=== PATIENT | female | born 1960 | race Hispanic/Latino ===

== ENCOUNTER 2019-09-04 15:46 | Emergency (ER) | payer BC ==
[~2019-09-04] VITALS: Ht 154.9 cm; Wt 76.2 kg
--- OUTSIDE RECORDS SUMMARY | 2019-09-04 15:50 | XMS REPORT ---
Author Author [facility] Address Unknown Phone Unavailable Care Team Providers Care Product Support Technician Name Role Phone Unavailable Unavailable Payers Payer Name Policy Type Policy Number Effective Date Expiration Date Problems This patient has no known problems. Allergies, Adverse Reactions, Alerts Allergy Name Allergy Type Status Severity Reaction(s) Onset Date Inactive Date Treating Clinician Comments naproxen DA Active U 2019-04-08 00:00:00 naproxen DA Active U 2016-12-19 00:00:00 Medications This patient has no known medications. Encounters Start Date/Time End Date/Time Encounter Type Admission Type Attending Clinicians Care Facility Care Department Encounter ID 2018-11-24 21:25:00 2018-11-24 21:25:00 Emergency E [id number] Results Test Description Test Time Test Comments Text Results Atomic Results Result Comments - XR ANKLE 3 + V RT 2019-07-04 11:26:00 FAX: Yann Pineda MD [phone] [place]: St: [facility] FAX: Nova Dennis MD [phone] Name: NATALIA LEMONS [facility] : 1960 Age/S: 59/F [address] Unit #: [id number] [facility] [place] [address] Phys: Yann Scales MD Acct: [id number] Dis Date: Status: REG RCR PHONE #: [phone] Exam Date: 07/04/2019 0932 FAX #: Reason: RIGHT ANKLE SPRAIN EXAMS: CPT CODE: [id number] XR ANKLE 3 + V RT [id number] HISTORY: Right ankle sprain. COMPARISON: April 08, 2019. Location: [facility]. 3 views of the right ankle: No acute fracture or dislocation. Ankle mortise is preserved. No osteochondral lesions of the talus. No ankle joint fluid. Plantar calcaneal enth esophyte. IMPRESSION: No acute fracture or dislocation. Ankle mortise is preserved. No joint fluid. at 1126 Reported and signed by: Sachin Lemos M.D. CC: Yann Scales MD; Nova Dennis MD Technologist: RT Sherwin(R) Trnscrd Date/Time/By: 07/04/2019 (1126) : By: [email or web address] Orig Print D/T: S: 07/04/2019 (1124) PAGE 1 Signed Report - XR FOOT 3 + V RT 2019-05-23 11:31:00 FAX: Yann Pineda MD [phone] [place]: St: REG FAX: Nova Dennis MD [phone] Name: NATALIA LEMONS [facility] [place] : 1960 Age/S: 59/F [address] Unit #: [id number] [facility] [place] [address] Phys: Yann Scales MD Acct: [id number] Dis Date: Status: REG RCR PHONE #: [phone] Exam Date: 05/23/2019 0948 FAX #: Reason: F/U EXAMS: CPT CODE: [id number] XR FOOT 3 + V RT [id number] HISTORY: Foot fracture follow-up. COMPARISON: April 08, 2019. Location: [facility]. 3 views of the right foot: Healing fractures of the distal diaphysis of the third and the fourth proximal phalanx. Fracture lines are visible within the sclerosis is noted suggesting healing. 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 Os peroneum soft tissue swelling. Plantar calcaneal enthesophyte. IMPRESSION: Healing fracture of the distal diaphysis of the third and the fourth proximal phalanx with sclerosis. at 1131 Reported and signed by: Sachin Lemos M.D. CC: Yann Scales MD; Nova Dennis MD Technologist: RT Sherwin(R) Trnscrd Date/Time/By: 05/23/2019 (1131) : By: [email or web address] PAGE 1 Signed Report - XR ANKLE 3 + V RT 2019-04-08 14:59:00 Name: NATALIA LEMONS [facility] : 1960 Age/S:59 /F [address] [facility] Unit#:[id number] Loc: [place] [address] Phys: Brandon Coyne Dis Date: PHONE #: [phone] Status: REG ER FAX #: [phone] Exam Date: 04/08/2019 Reason: PAIN S/P INJURY EXAMS: CPT CODE: [id number] XR ANKLE 3 + V RT [id number] REASON FOR EXAM: PAIN S/P INJURY EXAM ORDER DATE: 04/08/2019 2:33 PM Ordering: Brandon Coyne Attending:Oracio Roth MD Location:[facility] PROCEDURE: - XR ANKLE 3 + V RT FINDINGS: 3 views of the right ankle were obtained. The osseous structures are unremarkable in size and shape. The joint spaces are maintained. No evidence of fracture. The syndesmosis is intact. IMPRESSION: Unremarkable right ankle at 2855 Reported and signed by: Curt Randall M.D. CC: Nova Dennis MD; Brandon Coyne Technologist: Abdoulaye Hummel RT(R),CT Trnscrpt Data: 04/08/2019 (8838) t.SDR.VTL Orig Print D/T: S: 04/08/2019 (5464) PAGE 1 Signed Report - XR FOOT 3 + V RT 2019-04-08 14:57:00 Name: NATALIA LEMONS [facility] : 1960 Age/S:59 /F [address] [facility] Unit#:[id number] Loc: [place] [address] Phys: Brandon Coyne Dis Date: PHONE #: [phone] Status: REG ER FAX #: [phone] Exam Date: 04/08/2019 Reason: PAIN S/P INJURY EXAMS: CPT CODE: [id number] XR FOOT 3 + V RT [id number] REASON FOR EXAM: PAIN S/P INJURY EXAM ORDER DATE: 04/08/2019 2:33 PM Ordering: Brandon Coyne Attending:Oracio Roth MD Location:[facility] PROCEDURE: - XR FOOT 3 + V RT FINDINGS: 3 views of the right foot were obtained. Minimally displaced transverse fracture of the head of the third and fourth proximal phalanx. The joint spaces are maintained. The metatarsal and tarsal bones are unrem arkable IMPRESSION: Minimally displaced transverse fracture of the head of the third and fourth proximal phalanx at 2724 Reported and signed by: Curt Randall M.D. CC: Nova Dennis MD; Brandon Coyne Technologist: Abdoulaye Hummel RT(R),CT Trnscrpt Data: 04/08/2019 (8093) t.SDR.VTL Orig Print D/T: S: 04/08/2019 (9788) PAGE 1 Signed Report SCR MAMM BILATERAL MALKA CAD DIGITAL 2018-09-28 08:37:10 - SCR MAMM BILATERAL MALKA CAD DIGITALBILATERAL DIGITAL SCREENING MAMMOGRAM 3D/2D WITH CAD: 09/27/2018CLINICAL: Asymptomatic. Digital breast tomosynthesis was performed in addition to routine CC and MLO views. Current mammographic images were evaluated by either a [employer] M-Vu or a [employer] Hel[employer] Hands[employer] CAD (computer aided detection system). Comparison is made to exams dated 11/19/2015 mammogram, 06/23 mammogram, and 04/23/2012 mammogram - [facility]. The tissue of both breasts is predominantly fatty. No suspicious mass, architectural distortion, malignant type calcification, or lymph node abnormality detected. Breast architecture is stable compared to prior exams.IMPRESSION: NEGATIVEThere is no mammographic evidence of malignancy. Resume annual screening mammography in one year. Sang Maher M.D. ss/penrad:09/28/2018 08:37:10 Synthetic Plasterer: Sara Rhodes FW, [facility] sent: BIRADS 1-2 Normal Mammogram BI-RADS: 1 Negative
--- NOTE | 2019-09-04 17:11 | Diagnostic Imaging Report ---
EXAMINATION: CXR 1 [facility] INDICATION: Cough ^cough ^[id number] ^1702 COMPARISON: None FINDINGS: TUBES and LINES: None. LUNGS: Lungs are well inflated. Lungs are clear. There is no evidence of pneumonia or pulmonary edema. PLEURA: No pleural effusion or pneumothorax. HEART AND MEDIASTINUM: The cardiomediastinal silhouette is unremarkable. BONES AND SOFT TISSUES: No acute osseous lesion. Soft tissues are unremarkable. UPPER ABDOMEN: No free air under the diaphragm. IMPRESSION: No acute thoracic abnormality. Signed by: Dr. Chepe Rock M.D. on 09/04/2019 5:08 PM
[2019-09-04] MEDS ORDERED: BACTRIM DS TAB1 EACH PO (18:02)
[2019-09-04] MEDS ORDERED: AUGMENTIN 500-1 EACH PO (18:02)
[2019-09-04 18:22] VITALS: BP 134/67
== END 2019-09-04 18:33 | disposition home or self-care (01) ==
LOC: FSED 15:46
DX: R05 Cough (principal); J20.9 Acute bronchitis, unspecified; J02.0 Streptococcal pharyngitis
CPT/HCPCS: 71045; 83518; 87400; 99283